=== PATIENT | female | born 1995 | race Caucasian/White ===

== ENCOUNTER 2019-10-09 18:15 | Emergency (ER) | payer MEDICAID ==
[~2019-10-09] VITALS: Ht 157.5 cm; Wt 70.5 kg
[2019-10-09 18:34] VITALS: BP 146/66
[2019-10-09] MEDS ORDERED: IBUP-1984 PO (19:34)
== END 2019-10-09 19:51 | disposition home or self-care (01) ==
LOC: ER 18:16
DX: S40.021A Contusion of right upper arm, initial encounter (principal); S80.12XA Contusion of left lower leg, initial encounter; W26.0XXA Contact with knife, initial encounter; Y93.89 Activity, other specified; Y92.89 Other specified places as the place of occurrence of the external cause; Y99.9 Unspecified external cause status
CPT/HCPCS: 73590; 99283